=== PATIENT | female | born 1960 | race Asian ===

== ENCOUNTER → 2017-12-25 | Outpatient (CLI) | payer MEDICARE, OTHER ==
[~2017-12-25] MED LIST: ATOR40TA28 PO; CLOP75 PO; FISH1CAP49 PO; HYDR25TA PO; MULT-1238 PO; NIFE30TA5 PO; OS500 PO; POTA10CA44 PO; TRAM50TA4 PO
== END | disposition home or self-care (01) ==
LOC: LABPV 08:21
PROVIDERS: ATTEND Physical Medicine & Rehabilitation
DX: R21 Rash and other nonspecific skin eruption (principal); M25.50 Pain in unspecified joint
CPT/HCPCS: 85651; 86038; 86140; 86430